=== PATIENT | female | born 1995 | race Caucasian/White ===

== ENCOUNTER 2017-05-10 10:11 | Emergency (ER) | payer OTHER ==
[~2017-05-10] VITALS: Ht 160 cm; Wt 56.7 kg
[~2017-05-10 10:11] MED LIST: ALBU90OI INH; AMOX500 PO; AZIT250 PO; BENZ100A PO; CLON.1 PO; CODACE30 PO; IBUP600 PO; IBUP800 PO; Keflex500 MG PO; Norco 10-325 T1 EACH PO; ONDA4 PO; OXYACE5T PO; PRED20 PO; PRENATAL TABLE1 EAC1 PO; PROCODE120 PO; Pepcid20 MG PO; Prednisone20 MG PO; Sudogest30 MG PO; Zofran Odt4 MG SL
[2017-05-10] MEDS ORDERED: Zofran Odt4 MG SL (10:56)
== END 2017-05-10 11:10 | disposition home or self-care (01) ==
LOC: ER 10:11
DX: J06.9 Acute upper respiratory infection, unspecified (principal); F17.200 Nicotine dependence, unspecified, uncomplicated
CPT/HCPCS: 99282

== ENCOUNTER → 2017-05-31 | Outpatient (CLI) | payer OTHER ==
[2017-06-01 15:04] LABS: Candida species (DNA Probe) Negative (NEGATIVE); G. vaginalis (DNA Probe) Positive (NEGATIVE); T. vaginalis (DNA Probe) Negative (NEGATIVE)
== END | disposition home or self-care (01) ==
LOC: LAB 12:20 → LAB SHORT 12:20
PROVIDERS: Physician Assistant
DX: N89.8 Other specified noninflammatory disorders of vagina (principal)
CPT/HCPCS: 87480; 87510; 87660

== ENCOUNTER → 2017-05-31 | Outpatient (CLI) | payer OTHER ==
[2017-05-31 13:16] LABS: Specimen Source URINE
[2017-06-01 16:20] LABS: Source Urine
== END ==
LOC: LAB 13:15
PROVIDERS: Physician Assistant
DX: N89.8 Other specified noninflammatory disorders of vagina (principal)
CPT/HCPCS: 87491; 87591

== ENCOUNTER → 2017-12-11 | Outpatient (CLI) | payer OTHER | LOC: LAB SHORT 17:22 → LAB 17:22 | DX: A54.9 Gonococcal infection, unspecified (principal) | CPT/HCPCS: 87070; 87147; 87205 ==

== ENCOUNTER → 2018-11-18 | Outpatient (CLI) | payer OTHER | LOC: LAB UCHC 15:35 → LAB SHORT 15:35 | DX: N89.8 Other specified noninflammatory disorders of vagina (principal) | CPT/HCPCS: 87070; 87205 ==

== ENCOUNTER → 2022-02-26 | Outpatient (CLI) | payer OTHER ==
[2022-02-27 10:15] LABS: Candida species (DNA Probe) Negative (NEGATIVE); G. vaginalis (DNA Probe) Positive (NEGATIVE); T. vaginalis (DNA Probe) Negative (NEGATIVE)
[2022-03-01 09:09] LABS: CHLAMYDIA BY NAA Negative (Negative); GONOCOCCUS BY NAA Negative (Negative); TRICH VAG BY NAA Negative (Negative)
[2022-03-03 03:10] LABS: HSV-1 DNA Negative (Negative); HSV-2 DNA Negative (Negative)
== END ==
LOC: LAB 18:47 → LAB SHORT 18:47
PROVIDERS: Physician Assistant
DX: N89.8 Other specified noninflammatory disorders of vagina (principal)
CPT/HCPCS: 87480; 87491; 87510; 87529; 87591; 87660; 87661

== ENCOUNTER 2022-09-16 14:10 | Emergency (ER) | payer OTHER ==
[~2022-09-16] VITALS: Ht 160 cm; Wt 65.8 kg
[2022-09-16 14:34] VITALS: BP 109/53
[2022-09-16] MEDS ORDERED: Norco 5-325 Ta1 EACH PO (15:55)
== END 2022-09-16 16:09 | disposition home or self-care (01) ==
LOC: ER 14:10
DX: S52.615A Nondisplaced fracture of left ulna styloid process, initial encounter for closed fracture (principal); S52.502A Unspecified fracture of the lower end of left radius, initial encounter for closed fracture; V80.010A Animal-rider injured by fall from or being thrown from horse in noncollision accident, initial encounter; F17.200 Nicotine dependence, unspecified, uncomplicated
CPT/HCPCS: 29125; 73030; 73110; 99284-25; A9270

== ENCOUNTER → 2023-10-14 | Outpatient (CLI) | payer OTHER ==
[~2023-10-14] MED LIST changes: +Norco 5-325 Ta1 EACH PO
== END ==
LOC: LAB SHORT 17:17 → LAB 17:17
DX: J02.9 Acute pharyngitis, unspecified (principal)
CPT/HCPCS: 87081

== ENCOUNTER → 2023-12-11 | Outpatient (CLI) | payer OTHER ==
[2023-12-11 12:35] LABS: Hematocrit 32.4 % (33.0-51.0); Hemoglobin 11.1 g/dL (11.5-16.0)
== END | disposition home or self-care (01) ==
LOC: LAB 11:45 → LAB SHORT 11:45
PROVIDERS: Registered Nurse Community Health
DX: Z34.93 Encounter for supervision of normal pregnancy, unspecified, third trimester (principal)
CPT/HCPCS: 82950; 85014; 85018

== ENCOUNTER → 2024-01-22 | Outpatient (CLI) | payer OTHER | END | disposition home or self-care (01) | LOC: LAB 10:47 → LAB SHORT 10:47 | DX: Z34.93 Encounter for supervision of normal pregnancy, unspecified, third trimester (principal) | CPT/HCPCS: 87081; 87150 ==

== ENCOUNTER 2024-02-09 01:03 | Inpatient (IN) | payer OTHER ==
[~2024-02-09] VITALS: Ht 162.6 cm; Wt 74.0 kg
[2024-02-09] VITALS (28 sets, daily range): BP systolic 102–149; BP diastolic 55–99
[2024-02-09] MEDS ORDERED: Misoprostol 200 MCG Tab PR PRN ×2 (01:20→11:40)
[2024-02-09] MEDS ORDERED: Carboprost Tromethamine 250 MCG/ML 1ML Amp IM PRN (01:20)
[2024-02-09] MEDS ORDERED: Oxytocin 10 Unit / ML Vial IM PRN (01:20)
[2024-02-09] MEDS ORDERED: Methylergonovine Maleate 0.2MG / ML 1ML Amp IM PRN ×2 (01:20→11:40)
[2024-02-09] MEDS ORDERED: Misoprostol 200 MCG Tab BC PRN (01:20)
[2024-02-09] MEDS ORDERED: FentaNYL Citrate 50 MCG/ML 2 ML Injection IV PRN ×2 (01:20→03:40)
[2024-02-09] MEDS ORDERED: Tranexamic Acid 100 ML IV SCH (01:20)
[2024-02-09] MEDS ORDERED: Acetaminophen 500 MG Tab PO PRN (01:20)
[2024-02-09] MEDS ORDERED: Lactated Ringer's 1,000 ML IV PRN ×2 (01:20→01:25)
[2024-02-09] MEDS ORDERED: Ondansetron HCl 2 MG / ML 2ML Vial IV PRN (01:20)
[2024-02-09] MEDS ORDERED: OXYTOCIN/RINGER'S LACTATE 500 ML IV PRN (01:20)
[2024-02-09] MEDS ORDERED: ePHEDrine Sulfate 50 MG/ML 1ML Injection XX PRN (01:25)
[2024-02-09] MEDS ORDERED: Calcium Carbonate 500 MG Tab Chew PO PRN (01:25)
[2024-02-09] MEDS ORDERED: Lactated Ringer's 1,000 ML IV SCH ×2 (01:25→11:30)
[2024-02-09] MEDS ORDERED: FentaNYL 2mcg/ml-Bup 0.1% Epd 250 ML EPI PRN (01:25)
[2024-02-09] MEDS ORDERED: FentaNYL Citrate 50 MCG/ML 2 ML Injection ONE (01:57)
[2024-02-09] MEDS ORDERED: FentaNYL Citrate 50 MCG/ML 2 ML Injection IV ONE (06:09)
[2024-02-09] MEDS ORDERED: Famotidine 10 MG/ML 2ML Vial IV ONE (09:30)
[2024-02-09 09:46] LABS: BASOPHILS ABSOLUTE AUTO 0.03 K/mm3 (0.00-0.23); BASOPHILS PERCENT AUTO 0 % (0-2); EOSINOPHILS PERCENT AUTO 0 % (0-6); Hematocrit 30.3 % (33.0-51.0); Hemoglobin 10.7 g/dL (11.5-16.0); IMMATURE GRAN ABSOLUTE AUTO 0.06 K/mm3 (0.00-0.10); IMMATURE GRAN PERCENT AUTO 0 % (0-1); LYMPHOCYTES ABSOLUTE AUTO 2.09 K/mm3 (0.84-5.20); LYMPHOCYTES PERCENT AUTO 14 % (21-46); MONOCYTES PERCENT AUTO 3 % (4-13); Mean Corpuscular HGB 32.1 pg (26.0-34.0); Mean Corpuscular HGB Conc 35.3 g/dL (31.5-36.5); Mean Corpuscular Volume 91 fL (80-100); Mean Platelet Volume 12.1 fL (9.1-12.4); NEUTROPHILS ABSOLUTE AUTO 11.94 K/mm3 (1.96-9.15); NEUTROPHILS PERCENT AUTO 82 % (41-73); Platelet Count 139 K/mm3 (150-400); RDW Coefficient Variation 12.9 % (11.7-14.2); RDW Standard Deviation 41.9 fL (35.1-46.3); Red Blood Cell Count 3.33 M/mm3 (3.80-5.20); White Blood Cell Count 14.62 K/mm3 (4.00-11.30)
[2024-02-09] MEDS ORDERED: Ibuprofen 400 MG Tab PO PRN (11:30)
[2024-02-09] MEDS ORDERED: FLU VACC TS2024-25(6MOS UP)/PF 45 MCG/0.5 ML SYRINGE IM ONE (11:35)
[2024-02-09] MEDS ORDERED: Measles/Mumps/Rubella Vaccine 0.5 ML Vial SC ONE (11:35)
[2024-02-09] MEDS ORDERED: Diphth,Pertuss(Acell),Tet Vac 0.5 ML VIAL IM ONE (11:35)
[2024-02-09] MEDS ORDERED: Benzocaine Topical Anesthetic Spray 60GM TOP PRN (11:35)
[2024-02-09] MEDS ORDERED: Acetaminophen 325 MG TABLET PO PRN (11:35)
[2024-02-09] MEDS ORDERED: Ketorolac Tromethamine 30mg Vial IV PRN (11:35)
[2024-02-09] MEDS ORDERED: Witch Hazel/Glycerin PADS TOP PRN (11:35)
[2024-02-09] MEDS ORDERED: Lanolin Cream TOP PRN (11:40)
[2024-02-09] MEDS ORDERED: OXYTOCIN/RINGER'S LACTATE 500 ML IV SCH (11:40)
[2024-02-09] MEDS ORDERED: Oxytocin 10 Unit / ML Vial IM ONE (11:40)
[2024-02-09] MEDS ORDERED: OxyCODONE 5 mg/Acetamin 325 mg TABLET PO PRN (11:40)
[2024-02-09] MEDS ORDERED: Docusate Sodium 100 MG Cap PO PRN (11:40)
[2024-02-09] MEDS ORDERED: IBUP800 PO (20:19)
[2024-02-10 04:29] VITALS: BP 105/64
[2024-02-10 07:36] LABS: Hematocrit 30.9 % (33.0-51.0); Hemoglobin 10.4 g/dL (11.5-16.0); Mean Corpuscular HGB 31.8 pg (26.0-34.0); Mean Corpuscular HGB Conc 33.7 g/dL (31.5-36.5); Mean Corpuscular Volume 95 fL (80-100); Mean Platelet Volume 11.8 fL (9.1-12.4); Platelet Count 130 K/mm3 (150-400); RDW Coefficient Variation 13.2 % (11.7-14.2); RDW Standard Deviation 45.1 fL (35.1-46.3); Red Blood Cell Count 3.27 M/mm3 (3.80-5.20); White Blood Cell Count 9.42 K/mm3 (4.00-11.30)
[2024-02-10 08:21] VITALS: BP 110/72
[2024-02-10] MEDS ORDERED: Prenatal Vit/FE Fumarate/FA 1 Tab PO SCH (09:00)
--- NOTE | 2024-02-10 11:05 | NUR ---
DISCHARGE INSTRUCTIONS, WRITTEN AND VERBAL GIVEN TO PT. ANSWERED ALL QUESTIONS AND CONCERNS. EPDS OF 4. PT OFFERED RUBELL AND FLU VACCINES, PT DECLINED BOTH. PAIN MEDICATIONS FAXED INTO PHARMACY BY PROVIDER. ALL PERSONAL BELONGINGS RETURNED. FOLLOW UP APPOINTMENT SCHEDULED. PT IS READY FOR DISCHARGE WITH [facility]ABY.
[2024-02-10 12:05] VITALS: BP 103/60
== END 2024-02-10 12:36 | disposition home or self-care (01) | DRG 807 ==
LOC: OBS 01:03 → BC 01:04 → OBS 01:26 → BC 03:38
PROVIDERS: ADMIT Registered Nurse Community Health
PROC: 10E0XZZ Delivery of Products of Conception, External Approach (ICD-10-PCS; principal; 2024-02-09)
PROC: 10907ZC Drainage of Amniotic Fluid, Therapeutic from Products of Conception, Via Natural or Artificial Opening (ICD-10-PCS; 2024-02-09)
PROC: 0HQ9XZZ Repair Perineum Skin, External Approach (ICD-10-PCS; 2024-02-09)
PROC: 4A1HXCZ Monitoring of Products of Conception, Cardiac Rate, External Approach (ICD-10-PCS; 2024-02-09)
PROC: 3E0R3BZ Introduction of Anesthetic Agent into Spinal Canal, Percutaneous Approach (ICD-10-PCS; 2024-02-09)
PROC: 00HU33Z Insertion of Infusion Device into Spinal Canal, Percutaneous Approach (ICD-10-PCS; 2024-02-09)
DX: O70.1 Second degree perineal laceration during delivery (principal); Z37.0 Single live birth; Z3A.39 39 weeks gestation of pregnancy
CPT/HCPCS: 36415; 51702; 85025; 85027; 86850; 86900; 86901; A9270; J1885; J3010; J7120